=== PATIENT | male | born 1945 | race Caucasian/White ===

== ENCOUNTER 2023-05-06 15:33 | Observation (INO) | payer BC, MEDICARE ==
[~2023-05-06] VITALS: Ht 188 cm; Wt 68.9 kg
[2023-05-06 16:54] LABS: Basophils # (auto) 0 10 ^3/uL (0-0.2); Basophils % (auto) 0.2 % (0.0-2.0); Eosinophils # (auto) 0.2 10 ^3/uL (0-0.8); Eosinophils % (auto) 2.5 % (0.0-7.0); Hematocrit 44.9 % (41.0-53.0); Hemoglobin 15.3 g/dL (13.5-17.5); Lymphocytes % (auto) 21.9 % (10.0-50.0); Mean Corpuscular Hemoglobin 31.8 pg (28.0-32.0); Mean Corpuscular Hgb Conc. 34.2 g/dL (32.0-36.0); Monocytes # (auto) 0.8 10 ^3/uL (0-1.3); Monocytes % (auto) 8.8 % (0.0-12.0); Neutrophils # (auto) 6.2 10 ^3/uL (1.6-8.6); Neutrophils % (auto) 66.6 % (37.0-80.0); Nucleated Red Blood Cells % 0.1 %; Red Blood Cells 4.83 10^6/uL (4.5-5.90); Red Cell Distribution Width 14.1 % (11.8-14.3); White Blood Cell 9.2 10^3/uL (4.4-10.8)
[2023-05-06 17:11] LABS: INR 1.04 (0.9-1.15); Prothrombin Time 10.9 sec (9.3-11.8)
[2023-05-06 17:21] LABS: Chloride 104 mmol/L (98-107); Potassium 3.5 mmol/L (3.5-5.1); Sodium 141 mmol/L (136-145)
[2023-05-06 17:22] LABS: Anion Gap 11 (5-15); Carbon Dioxide 26 mmol/L (20-30)
[2023-05-06 17:23] LABS: Calcium 10.3 mg/dL (8.5-10.1)
[2023-05-06 17:27] LABS: BUN/Creatinine Ratio 14.6 (10.0-20.0); Blood Urea Nitrogen 15 mg/dL (9-23); Glucose 92 mg/dL (74-106)
[2023-05-06 18:00] VITALS: PULSE 84; RESP 16; O2SAT 97
[2023-05-06] MEDS: GLUCAGON EMERG KIT 1mg/1ml IV ONE ×2 (18:15→22:45)
[2023-05-06] MEDS: PANTOPRAZOLE 40 MG/10 ML VIAL INJ IV ONE (19:21)
[2023-05-06] MEDS: SODIUM CHLORIDE 0.9% 1,000 ML IV ONE (19:21)
[2023-05-06 19:30] VITALS: PULSE 77; RESP 13; O2SAT 97
[2023-05-06 20:06] LABS: Basophils # (auto) 0 10 ^3/uL (0-0.2); Basophils % (auto) 0.3 % (0.0-2.0); Eosinophils # (auto) 0.2 10 ^3/uL (0-0.8); Eosinophils % (auto) 1.1 % (0.0-7.0); Hematocrit 44.3 % (41.0-53.0); Hemoglobin 14.9 g/dL (13.5-17.5); Lymphocytes # (auto) 1.4 10 ^3/uL (0.4-5.4); Lymphocytes % (auto) 7.4 % (10.0-50.0); Mean Corpuscular Hemoglobin 31.3 pg (28.0-32.0); Mean Corpuscular Hgb Conc. 33.5 g/dL (32.0-36.0); Mean Corpuscular Volume 93.3 fL (80.0-100.0); Monocytes # (auto) 1.3 10 ^3/uL (0-1.3); Monocytes % (auto) 7.4 % (0.0-12.0); Neutrophils # (auto) 15.4 10 ^3/uL (1.6-8.6); Neutrophils % (auto) 83.8 % (37.0-80.0); Red Blood Cells 4.75 10^6/uL (4.5-5.90); Red Cell Distribution Width 14.2 % (11.8-14.3); White Blood Cell 18.3 10^3/uL (4.4-10.8)
[2023-05-06 20:15] LABS: Chloride 104 mmol/L (98-107); Potassium 3.3 mmol/L (3.5-5.1); Sodium 141 mmol/L (136-145)
[2023-05-06 20:16] LABS: Anion Gap 10 (5-15); Carbon Dioxide 27 mmol/L (20-30)
[2023-05-06 20:20] LABS: INR 1.07 (0.9-1.15); Partial Thromboplastin Time 26.5 SEC (24.5-34.5); Prothrombin Time 11.2 sec (9.3-11.8)
[2023-05-06 20:22] LABS: Blood Urea Nitrogen 14 mg/dL (9-23); Glucose 128 mg/dL (74-106)
[2023-05-06] MEDS ORDERED: NITROGLYCERIN 0.4 MG SL TAB SL PRN (23:15)
[2023-05-06] MEDS ORDERED: ONDANSETRON HCL 4 MG/2 ML VIAL IV PRN (23:15)
[2023-05-06] MEDS ORDERED: METOCLOPRAMIDE HCL 5MG/ml INJ 2ml VIAL IV PRN (23:15)
[2023-05-06] MEDS ORDERED: MORPHINE SULFATE INJ 2 MG/ml SYRG IV PRN (23:15)
[2023-05-07] VITALS (7 sets, daily range): BP systolic 117–136; BP diastolic 61–80; PULSE 70–80; RESP 16–18; TEMP 37.2; O2SAT 97–98
[2023-05-07] MEDS: cefTRIAXone 1GM/50ML D5W 50 ML IV ONE (00:27)
[2023-05-07 05:03] LABS: Basophils # (auto) 0 10 ^3/uL (0-0.2); Basophils % (auto) 0.3 % (0.0-2.0); Eosinophils # (auto) 0.2 10 ^3/uL (0-0.8); Eosinophils % (auto) 1.8 % (0.0-7.0); Hematocrit 42.7 % (41.0-53.0); Hemoglobin 14.8 g/dL (13.5-17.5); Lymphocytes # (auto) 1.2 10 ^3/uL (0.4-5.4); Lymphocytes % (auto) 10.6 % (10.0-50.0); Mean Corpuscular Hemoglobin 31.9 pg (28.0-32.0); Mean Corpuscular Hgb Conc. 34.7 g/dL (32.0-36.0); Monocytes # (auto) 1.1 10 ^3/uL (0-1.3); Monocytes % (auto) 9.7 % (0.0-12.0); Neutrophils # (auto) 8.7 10 ^3/uL (1.6-8.6); Neutrophils % (auto) 77.6 % (37.0-80.0); Red Blood Cells 4.64 10^6/uL (4.5-5.90); Red Cell Distribution Width 14.1 % (11.8-14.3); White Blood Cell 11.2 10^3/uL (4.4-10.8)
[2023-05-07 05:06] LABS: Anion Gap 12 (5-15); Carbon Dioxide 24 mmol/L (20-30); Chloride 105 mmol/L (98-107); Potassium 3.5 mmol/L (3.5-5.1); Sodium 141 mmol/L (136-145)
[2023-05-07 05:08] LABS: Calcium 9.5 mg/dL (8.5-10.1)
[2023-05-07 05:12] LABS: BUN/Creatinine Ratio 17.1 (10.0-20.0); Blood Urea Nitrogen 14 mg/dL (9-23); Glucose 77 mg/dL (74-106)
[2023-05-07] MEDS ORDERED: HYDR25TA5 PO (05:42)
[2023-05-07] MEDS ORDERED: TAMS1CAP25 PO (05:42)
[2023-05-07] MEDS ORDERED: BENA-19 PO (05:42)
[2023-05-07] MEDS ORDERED: PANT40T PO (05:42)
[2023-05-07] MEDS ORDERED: SIMV20TA20 PO (05:42)
[2023-05-07] MEDS ORDERED: TRAM50TA2 PO (05:42)
[2023-05-07] MEDS ORDERED: PROPOFOL 10 MG/ML 20 ML IV ONE ×2 (06:56→08:03)
[2023-05-07] MEDS ORDERED: LIDOCAINE 2%HCL (LOCAL ANESTH.) INJ 10ml MDV ONE (07:43)
[2023-05-07] MEDS: PANTOPRAZOLE 40 MG/10 ML VIAL INJ IV SCH (10:56)
[2023-05-07] MEDS: SUCRALFATE 1 GM/10 ML ORAL SUSP PO SCH (10:56)
[2023-05-07] MEDS ORDERED: SUCR1SUS26 PO (17:35)
[2023-05-07] MEDS ORDERED: PANT40TA2 PO (17:35)
== END 2023-05-07 18:50 | disposition home or self-care (01) ==
LOC: ER 15:33 → TELE 23:21 → TELE-WESTW 05-07 05:12
PROVIDERS: ADMIT Nurse Practitioner Family; ATTEND Nurse Practitioner Family
DX: T18.128A Food in esophagus causing other injury, initial encounter (principal); R11.2 Nausea with vomiting, unspecified; R13.12 Dysphagia, oropharyngeal phase; K31.7 Polyp of stomach and duodenum; K22.2 Esophageal obstruction; K44.9 Diaphragmatic hernia without obstruction or gangrene; K22.10 Ulcer of esophagus without bleeding; I10 Essential (primary) hypertension; D84.9 Immunodeficiency, unspecified; K21.9 Gastro-esophageal reflux disease without esophagitis; W44.F3XA Food entering into or through a natural orifice, initial encounter; Y93.89 Activity, other specified; Y92.89 Other specified places as the place of occurrence of the external cause; Y99.8 Other external cause status
CPT/HCPCS: 36415; 43239; 43247; 43251; 71045; 80048; 85025; 85610; 85730; 93005; 96361; 96365; 96375; 96376; 99285; C9113; G0378; J0696; J1610; J2001; J2704; J7030

== ENCOUNTER 2023-12-27 08:15 | Inpatient (IN) | payer BC, MEDICARE ==
[~2023-12-27] VITALS: Ht 154.9 cm; Wt 79.6 kg
[~2023-12-27 08:15] MED LIST: BENA10TA90 PO; HYDR25TA5 PO; PANT40T PO; PANT40TA2 PO; SIMV20TA20 PO; SUCR1SUS26 PO; TAMS1CAP25 PO; TRAM50TA2 PO
[2023-12-27 10:05] LABS: Basophils # (auto) 0 10 ^3/uL (0-0.2); Basophils % (auto) 0.3 % (0.0-2.0); Eosinophils # (auto) 0.2 10 ^3/uL (0-0.8); Eosinophils % (auto) 1.5 % (0.0-7.0); Hematocrit 43.5 % (41.0-53.0); Hemoglobin 15.4 g/dL (13.5-17.5); Lymphocytes # (auto) 1.3 10 ^3/uL (0.4-5.4); Lymphocytes % (auto) 12.8 % (10.0-50.0); Mean Corpuscular Hgb Conc. 35.4 g/dL (32.0-36.0); Mean Corpuscular Volume 93.5 fL (80.0-100.0); Monocytes % (auto) 9.8 % (0.0-12.0); Neutrophils # (auto) 7.9 10 ^3/uL (1.6-8.6); Neutrophils % (auto) 75.6 % (37.0-80.0); Nucleated Red Blood Cells % 0.2 %; Platelet Count (auto) 203 10^3/uL (140-450); Red Blood Cells 4.65 10^6/uL (4.5-5.90); White Blood Cell 10.5 10^3/uL (4.4-10.8)
[2023-12-27] MEDS: ASPirin 81 mg TAB PO ONE (10:20)
[2023-12-27 10:32] LABS: Alanine Aminotransferase 30 U/L (7-40); Albumin 4.8 g/dL (3.2-4.8); Alkaline Phosphatase 55 U/L (46-116); Anion Gap 8 (5-15); Aspartate Aminotransferase 20 U/L (13-40); Blood Urea Nitrogen 19 mg/dL (9-23); Calcium 10.6 mg/dL (8.7-10.4); Carbon Dioxide 30 mmol/L (20-31); Chloride 102 mmol/L (98-107); Glucose 93 mg/dL (74-106); Potassium 4.2 mmol/L (3.5-5.1); Sodium 140 mmol/L (136-145)
[2023-12-27 10:33] LABS: Bilirubin, Total 0.8 mg/dL (0.2-1.0)
[2023-12-27 11:21] LABS: Urine Bacteria None Seen /hpf (None Seen)
[2023-12-27 11:40] LABS: Urine Blood Negative /uL (Negative); Urine Clarity Clear (Clear); Urine Color Yellow (Yellow); Urine Protein, UAD Negative (Negative); Urine Urobilinogen Normal (Negative); Urine WBC <1 /hpf (0 - 3)
[2023-12-27] MEDS ORDERED: IOHEXOL 350 MG/ML 100ML IJ ONE (11:51)
[2023-12-27] MEDS ORDERED: MORPHINE SULFATE INJ 2 MG/ml SYRG IV PRN (13:45)
[2023-12-27] MEDS ORDERED: ACETAMINOPHEN 325 MG TAB PO PRN (13:45)
[2023-12-27] MEDS ORDERED: NITROGLYCERIN 0.4 MG SL TAB SL PRN (13:45)
[2023-12-27] MEDS ORDERED: ONDANSETRON HCL 4 MG/2 ML VIAL IV PRN (13:45)
[2023-12-27 16:00] VITALS: PULSE 80; RESP 12; O2SAT 100
[2023-12-27] MEDS: HYDROcodone-ACET 5/325MG TAB PO PRN (19:15)
[2023-12-27 19:30] VITALS: BP 121/55; PULSE 77; RESP 19; TEMP 97.6; O2SAT 97
[2023-12-27 19:45] VITALS: PULSE 82; RESP 18; O2SAT 96
[2023-12-27 21:00] VITALS: BP 120/50; PULSE 70; RESP 19; RESP 20; TEMP 97.6; O2SAT 98
[2023-12-27] MEDS: ATORVASTATIN 20 MG TAB PO SCH (22:01)
[2023-12-28] VITALS (9 sets, daily range): BP systolic 110–135; BP diastolic 53–92; PULSE 62–85; RESP 18–20; TEMP 97.8–98.4; O2SAT 95–99
[2023-12-28] MEDS: ASPirin 81 mg TAB PO SCH (09:15)
[2023-12-28] MEDS: ENOXAPARIN SOD 40 MG/0.4 ML SYRINGE SC SCH (09:16)
[2023-12-29] VITALS (7 sets, daily range): BP systolic 101–125; BP diastolic 50–70; PULSE 73–88; RESP 18–19; TEMP 37.4; O2SAT 95–99
== END 2023-12-29 17:30 | disposition home or self-care (01) | DRG 552 ==
LOC: ER 08:15 → TELE 13:46 → TELE-WESTW 19:35
PROVIDERS: ADMIT Internal Medicine; ATTEND Internal Medicine
DX: M48.02 Spinal stenosis, cervical region (principal); G45.9 Transient cerebral ischemic attack, unspecified; M47.12 Other spondylosis with myelopathy, cervical region; E78.5 Hyperlipidemia, unspecified; I10 Essential (primary) hypertension; N40.0 Benign prostatic hyperplasia without lower urinary tract symptoms; G89.29 Other chronic pain; K21.9 Gastro-esophageal reflux disease without esophagitis; G56.03 Carpal tunnel syndrome, bilateral upper limbs; E04.2 Nontoxic multinodular goiter; M13.811 Other specified arthritis, right shoulder; Z80.0 Family history of malignant neoplasm of digestive organs; Z81.8 Family history of other mental and behavioral disorders; Z79.899 Other long term (current) drug therapy
CPT/HCPCS: 36415; 70450; 70496; 70551; 72141; 73200; 80053; 81001; 82962; 84484; 85025; 93005; 93306; 97163; G0378